=== PATIENT | female | born 2000 | race Caucasian/White ===

== ENCOUNTER 2019-03-17 18:45 | Emergency (ER) | payer BC ==
[2019-03-17 18:59] VITALS: BP 113/74
[2019-03-17] MEDS ORDERED: Tetan/Diph/Pertus SYR(Tdap)* 0.5 ML SYR(BOOSTRIX) use SYR IM ONE (19:02)
--- NOTE | 2019-03-17 19:10 | UC ---
Laceration HPI - HPI Summary HPI Summary: C/O laceration left thumb this evening cutting open a blade oil bottle with a knife. - History Of Current Complaint Chief Complaint: UCLaceration Stated Complaint: LACERATION Hx Obtained From: Patient Hx Last Menstrual Period: IUD Laceration Location: Finger - left thumb Mechanism Of Injury: Sharp Trauma Onset/Duration: Sudden Onset Severity: Moderate Pain Intensity: 4 Aggravating Factors: Movement Hands: 1 - 1.1 cm laceration 2 - laceration through the nail. Partial thickness on the tip of the finger - Allergies/Home Medications Allergies/Adverse Reactions: Allergies Allergy/AdvReac Type Severity Reaction Status Date / Time No Known Allergies Allergy Verified 03/17/19 18:59 Home Medications: Home Medications NK [No Home Medications Reported] 03/17/19 [History Confirmed 03/17/19] PMH/Surg Hx/FS Hx/Imm Hx Other GI/ History: Celiac's disease - Surgical History Surgical History: Yes Surgery Procedure, Year, and Place: Heart surgery-age 7 - Family History Known Family History: Negative: Cardiac Disease - Social History Occupation: Employed Full-time Lives: With Family Alcohol Use: None Substance Use Type: None Smoking Status (MU): Never Smoked Tobacco Review of Systems All Other Systems Reviewed And Are Negative: Yes Is Patient Immunocompromised?: No Physical Exam Triage Information Reviewed: Yes Appearance: Well-Appearing, No Pain Distress, Well-Nourished Vital Signs: Initial Vital Signs Temp 99 F 03/17/19 18:56 Pulse 72 03/17/19 18:56 Resp 16 03/17/19 18:56 BP 113/74 03/17/19 18:56 Pulse Ox 98 03/17/19 18:56 Vital Signs Reviewed: Yes Eyes: Positive: Conjunctiva Clear Neck exam: Normal Respiratory Exam: Normal Cardiovascular Exam: Normal Musculoskeletal Exam: Normal Neurological Exam: Normal Psychological Exam: Normal Skin: Positive: Other - laceration left thumb Laceration Repair - Laceration Repair 1 Description: Linear Laceration Size After Repair: Length (cm) - 1.1 Modified For Repair: No Type Injection: Local Anesthesia Used: 2.0% Lido Additive Used (in ml): Epi Cleansing Completed Via Routine Prep: Yes Irrigation With Pressure Irrigation Device: Yes Closure Material: Sutures Closure Method: Single Layer - 3 running sutures Suture Of: Skin Suture Type: Nylon - 4-0 Laceration Course/Dx - Differential Dx - Laceration/Wound Differental Diagnoses: Abrasion, Avulsion, Dehiscence, Laceration - Diagnosis Provider Diagnosis: Laceration of left thumb with damage to nail Discharge ED - Sign-Out/Discharge Documenting (check all that apply): Patient Departure All imaging exams completed and their final reports reviewed: No Studies - Discharge Plan Condition: Stable Disposition: HOME Patient Education Materials: Laceration (ED), Care For Your Stitches (ED) Referrals: Jono DOMÍNGUEZ,Dheeraj Parra [Primary Care Provider] - (10 days here or there for suture removal) - Billing Disposition and Condition Condition: STABLE Disposition: Home
== END 2019-03-17 19:43 | disposition home or self-care (01) ==
LOC: UCCORT 18:45
DX: W26.0XXA Contact with knife, initial encounter (principal); Y93.89 Activity, other specified; Y92.9 Unspecified place or not applicable; S61.012A Laceration without foreign body of left thumb without damage to nail, initial encounter; Z23 Encounter for immunization
CPT/HCPCS: 12001; 90471; 90715; 99201; G0463

== ENCOUNTER 2019-03-27 12:17 | Emergency (ER) | payer BC ==
[2019-03-27 12:31] VITALS: BP 106/57
--- NOTE | 2019-03-27 12:53 | UC ---
UC General HPI - HPI Summary HPI Summary: sutures placed L thumb 8 days ago. here for suture removal. notes one of the sites is healing over the stitch. no complaints. - History of Current Complaint Chief Complaint: UCWounds Stated Complaint: LEFT THUMB SUTURE REMOVAL Time Seen by Provider: 03/27/19 12:48 Hx Obtained From: Patient Hx Last Menstrual Period: IUD Pain Intensity: 0 Associated Signs & Symptoms: Negative: Edema, Fever, Weakness - Allergy/Home Medications Allergies/Adverse Reactions: Allergies Allergy/AdvReac Type Severity Reaction Status Date / Time No Known Allergies Allergy Verified 03/27/19 12:31 PMH/Surg Hx/FS Hx/Imm Hx Previously Healthy: Yes - Surgical History Surgical History: Yes Surgery Procedure, Year, and Place: Heart surgery-age 7 - Family History Known Family History: Negative: Cardiac Disease - Social History Alcohol Use: None Substance Use Type: None Smoking Status (MU): Never Smoked Tobacco Review of Systems All Other Systems Reviewed And Are Negative: No Constitutional: Negative: Fever Skin: Negative: Rash Musculoskeletal: Negative: Decreased ROM Neurological: Negative: Weakness, Paresthesia, Numbness Physical Exam Triage Information Reviewed: Yes Appearance: Well-Appearing Vital Signs: Initial Vital Signs Temp 99.3 F 03/27/19 12:26 Pulse 79 03/27/19 12:26 Resp 16 03/27/19 12:26 BP 106/57 03/27/19 12:26 Pulse Ox 100 03/27/19 12:26 Vital Signs Reviewed: Yes Musculoskeletal: Positive: Other: - L dorsal thumb: 2 stitches. no redness or swelling. s/v/m is intact. Neurological: Positive: Alert Psychological: Positive: Age Appropriate Behavior Skin Exam: Normal Skin: Negative: Rashes Course/Dx - Course Course Of Treatment: procedure=2 stitches removed. pt tolerated well. spec of blood from one site where skin healing over the stitch. bandaide applied to site. - Diagnoses Provider Diagnosis: Visit for suture removal Discharge ED - Sign-Out/Discharge Documenting (check all that apply): Patient Departure All imaging exams completed and their final reports reviewed: No Studies - Discharge Plan Condition: Stable Disposition: HOME Patient Education Materials: Stitches Removal (ED) Referrals: Jono DOMÍNGUEZ,Dheeraj Parra [Primary Care Provider] - If Needed - Billing Disposition and Condition Condition: STABLE Disposition: Home
== END 2019-03-27 12:58 | disposition home or self-care (01) ==
LOC: UCCORT 12:17
DX: S61.012D Laceration without foreign body of left thumb without damage to nail, subsequent encounter (principal); W45.8XXD Other foreign body or object entering through skin, subsequent encounter

== ENCOUNTER 2019-04-17 21:03 | Emergency (ER) | payer BC ==
[2019-04-17 23:33] VITALS: BP 97/49
== END 2019-04-17 23:34 | disposition left against medical advice (07) ==
LOC: ED 21:03
DX: Z53.21 Procedure and treatment not carried out due to patient leaving prior to being seen by health care provider (principal); R10.9 Unspecified abdominal pain
CPT/HCPCS: 99281